=== PATIENT | male | born 1960 | race Caucasian/White ===

== ENCOUNTER 2017-04-04 15:13 | Emergency (ER) | payer BC ==
--- NOTE | 2017-04-04 16:02 | CT ---
Head CT Technique: Multiple axial sections through the brain were obtained. Intravenous contrast was not utilized. Comparison: No previous intracranial imaging is available. Findings: Ventricles along with basal cisterns and sulci over the convexities are within normal limits for the patient's age. No abnormal parenchymal densities are seen. No evidence of intracranial hemorrhage. No midline shift or mass effect is seen. Bone window settings were reviewed which shows the visualized sinuses to appear clear. No acute calvarial abnormality is seen. Impression: 1. No acute intracranial abnormality is identified on noncontrast head CT study. Diagnostic code #1
--- NOTE | 2017-04-04 17:08 | EDM.PDOC ---
ED HPI GENERAL MEDICAL PROBLEM - General Chief Complaint: Neuro Symptoms/Deficits Stated Complaint: HEADACHE/VOMITING Time Seen by Provider: 04/04/17 17:00 Source of Information: Reports: Patient, Family (spouse.) History Limitations: Reports: No Limitations - History of Present Illness INITIAL COMMENTS - FREE TEXT/NARRATIVE: 56-year-old male attends the ED with severe pain in his right occipital scalp area with associated nausea vomiting and dizziness. The history suggests that he sneezed aggressively like very hard 3 nights ago and caused sudden onset of severe pain in the back of his head with associated nausea and a feeling like he was going to pass out. Subsequently with certain movements he will feel the same way with lancinating severe pains originating occipital scalp and radiate down to his neck and up the scalp to behind his right eye. Pain the distribution of the occipitofrontal nerve. Pain is constant but worsens with certain movements it becomes lancinating sharp and stabbing enough to make him almost pass out or vomit. He does have a sense of feeling off balance but think is more being very careful with his head movement due to his instigating the pain. It is worse today as compared to yesterday etc. He does wear bilateral hearing aids. Onset: Sudden Onset Date: 04/01/17 Duration: Day(s):, Getting Worse Location: Reports: Head Quality: Reports: Ache, Burning, Sharp, Stabbing Severity: Severe (Pain is often lancinating shooting in severe times) Improves with: Reports: Rest (And not moving.) Worsens with: Reports: Movement (Movement of his head particular to the left side) Context: Reports: Other. Denies: Activity, Exercise, Lifting, Sick Contact, Trauma Associated Symptoms: Reports: Loss of Appetite, Malaise, Nausea/Vomiting, Other Treatments [employer]: Reports: Other (see below) (Almost a component of vertigo-like symptoms at times.) Headache Pain Score (Numeric/FACES): 6 - Related Data Allergies Allergy/AdvReac Type Severity Reaction Status Date / Time No Known Allergies Allergy Verified 04/04/17 15:50 Home Meds: Home Meds Diclofenac Sodium [Voltaren 1% Gel] 0 mg PO ASDIRECTED 10/22/16 [History] Hydrochlorothiazide 12.5 mg PO DAILY 10/22/16 [History] Ibuprofen [Motrin] 800 mg PO ASDIRECTED 10/22/16 [History] Lisinopril 10 mg PO DAILY 10/22/16 [History] Meloxicam 15 mg PO 12 #12 tablet 04/04/17 [Rx] predniSONE [Deltasone] 20 mg PO ASDIRECTED #15 tablet 04/04/17 [Rx] Past Medical History Cardiovascular History: Reports: Hypertension - Past Surgical History Musculoskeletal Surgical History: Reports: Other (See Below) Social & Family History - Family History Family Medical History: Noncontributory - Tobacco Use Smoking Status *Q: Never Smoker Second Hand Smoke Exposure: Yes - Caffeine Use Caffeine Use: Reports: Coffee, Tea - Recreational Drug Use Recreational Drug Use: No - Living Situation & Occupation Living situation: Reports: , with Spouse, with Family Occupation: Employed ED ROS GENERAL - Review of Systems Review Of Systems: See Below Constitutional: Denies: Fever, Chills, Malaise, Weakness, Fatigue, Decreased Appetite, Weight Loss HEENT: Reports: Hearing Loss. Denies: Eye Discharge, Eye Pain, Glasses, Nose Pain, Rhinitis, Sinus Problem, Throat Pain, Throat Swelling Respiratory: Reports: No Symptoms Cardiovascular: Reports: No Symptoms Endocrine: Reports: No Symptoms GI/Abdominal: Reports: Nausea (Intermittent nausea and vomiting precipitated by the severity of the pain in his occipital right scalp.) : Reports: No Symptoms Musculoskeletal: Reports: Other (Neck and occipital scalp pain.) Skin: Reports: No Symptoms Neurological: Reports: No Symptoms, Dizziness (Time seen complains of dizziness almost vertically vertiginous-like). Denies: Confusion, Headache, Numbness ( activity.), Seizure, Syncope, Tingling, Tremors, Trouble Speaking, Difficulty Walking, Weakness, Change in Speech, Gait Disturbance, Other Psychiatric: Reports: No Symptoms Hematologic/Lymphatic: Reports: No Symptoms Immunologic: Reports: No Symptoms ED EXAM, DIZZINESS - Physical Exam Exam: See Below Exam Limited By: No Limitations General Appearance: Alert, WD/WN, No Apparent Distress, Anxious. No: Lethargic , Obtunded, Mild Distress, Moderate Distress, Severe Distress, Obese, Thin Eye Exam: Bilateral Eye: Normal Inspection, PERRL (Interesting it bothered him on left lateral upward gaze but he was moving his head at the same time is to use rubbing his eye.) Ears: Normal External Exam, Normal TMs (Hearing aids out there is no wax occluding his ears canals. Tympanic membranes are normal) Throat/Mouth: Normal Inspection, Normal Lips, Normal Teeth, Normal Gums, Normal Oropharynx, Other Head Exam: Atraumatic (Uvula is in the midline), Other (Patient has an area of extreme tenderness on palpation of the occipital scalp base on the right side where the paraspinal muscles and sternocleidomastoid muscles insert. This caused no pain with light pressure to almost make him vomit.) Vertigo: worsens with head to L (Will be sent to the left exacerbates the pain tremendously.) Neck: Normal Inspection, Supple, Non-Tender, Full Range of Motion, Limited Range of Motion (pain worse with forward flexion of the head to chin position.) . No: Tender Midline, Thyromegaly Respiratory/Chest: No Respiratory Distress, Lungs Clear, Normal Breath Sounds, No Accessory Muscle Use Cardiovascular: Normal Peripheral Pulses, Regular Rate, Rhythm, No Edema, No Gallop, No JVD, No Murmur, No Rub GI/Abdominal: Normal Bowel Sounds, Soft, Non-Tender, No Organomegaly, No Abnormal Bruit Neurological: Alert, Normal Mood/Affect, Normal Dorsiflexion, CN II-XII Intact, Normal Plantar Flexion, Normal Gait, No Motor/Sensory Deficits, Oriented x 3, Other (Patient had no problems with finger to nose although is a bit slow at the activity. Rapid alternating movements were normal. [id number] was normal.) Back Exam: Normal Inspection, Full Range of Motion Extremities: Normal Inspection, Normal Range of Motion, Non-Tender, No Pedal Edema, Normal Capillary Refill Psychiatric: Normal Affect, Normal Mood Skin Exam: Warm, Dry, Intact, Normal Color, No Rash Course - Vital Signs Last Recorded V/S: Last Vital Signs Temp 36.2 C 04/04/17 15:15 Pulse 69 04/04/17 15:15 Resp 16 04/04/17 15:15 BP 122/77 04/04/17 15:15 Pulse Ox 98 04/04/17 15:15 - Orders/Labs/Meds Orders: Active Orders 24 hr Category Date Time Status CBC WITH MANUAL DIFF [HEME] Stat Lab 04/04/17 15:45 Results Ketorolac [Toradol] Med 04/04/17 17:15 Active 30 mg IVPUSH ONETIME Medication Orders Ketorolac Tromethamine (Toradol) 30 mg IVPUSH ONETIME TABATHA Last Admin: 04/04/17 17:16 Dose: 30 mg Labs: Laboratory Tests 04/04/17 04/04/17 Range/Units 15:45 15:45 WBC 8.35 (4.23-9.07) K/mm3 RBC 5.06 (4.63-6.08) M/mm3 Hgb 14.8 (13.7-17.5) gm/L Hct 43.5 (40.1-51.0) % MCV 86.0 (79.0-92.2) fl MCH 29.2 (25.7-32.2) pg MCHC 34.0 (32.2-35.5) g/dl RDW Std Deviation 42.8 (35.1-43.9) fL Plt Count 270 (163-337) K/mm3 MPV 10.7 (9.4-12.3) fl Sodium 136 (136-145) mEq/L Potassium 3.3 L (3.5-5.1) mEq/L Chloride 101 (98-107) mEq/L Carbon Dioxide 26 (21-32) mEq/L Anion Gap 12.3 (5-15) BUN 19 H (7-18) mg/dL Creatinine 1.2 (0.7-1.3) mg/dL Est Cr Clr Drug Dosing 73.21 mL/min Estimated GFR (MDRD) > 60 (>60) mL/min BUN/Creatinine Ratio 15.8 (14-18) Glucose 97 (74-106) mg/dL Calcium 9.0 (8.5-10.1) mg/dL Magnesium 2.2 (1.8-2.4) mg/dl Total Bilirubin 0.5 (0.2-1.0) mg/dL AST 25 (15-37) U/L ALT 35 (16-63) U/L Alkaline Phosphatase 74 (46-116) U/L C-Reactive Protein < 0.2 (<1.0) mg/dL Total Protein 7.9 (6.4-8.2) g/dl Albumin 4.4 (3.4-5.0) g/dl Globulin 3.5 gm/dL Albumin/Globulin Ratio 1.3 (1-2) Meds: Medications Generic Name Dose Route Start Last Admin Trade Name Freq PRN Reason Stop Dose Admin Ketorolac Tromethamine 30 mg 04/04/17 17:15 04/04/17 17:16 Toradol IVPUSH 30 mg ONETIME TABATHA Administration Discontinued Medications Generic Name Dose Route Start Last Admin Trade Name Nithin PRN Reason Stop Dose Admin Ondansetron HCl 4 mg 04/04/17 17:09 04/04/17 17:13 Zofran IVPUSH 04/04/17 17:10 4 mg ONETIME ONE Administration - Radiology Interpretation Free Text/Narrative:: 56-year-old male attends the ED due to severe pain in his right occipital scalp since sneezing hard 3 days ago. He never came up with the point of tenderness until we brought it up and examined him. He is expressing sharp lancinating pain when he moves in certain directions particularly looking to the left or forward flexing his neck. Anus benefits made him almost pass out and has precipitated nausea and vomiting. CT scan of his brain was done as he was called a stroke alert upon his arrival. CT of the brain is normal. Neuro exam is also compliant normal. I feel that his current pain is secondary to muscle strain at the base of the scalp. Causing a headache and sharp lancinating pain with certain movements. I'm going to have routine labs done because he is dieting plus he is drinking a lot of water and tea. Wish to make sure that he is not hyponatremic etc. - Re-Assessments/Exams Free Text/Narrative Re-Assessment/Exam: 04/04/17 18:19: Labs are essentially normal other than a mildly low potassium at 3.3. Patient does have a good appetite otherwise. I'm therefore going to have him place his Voltaren gel that he has at home on the area twice daily. Going to place him on meloxicam 15 mg once daily for [address] him on Deltasone 20 mg with breakfast and supper for 5 days then once daily in the morning for another 5 days to reduce pain and inflammation. Patient has a relative intolerance to narcotics and therefore I'm not going to give him any narcotic medication. He throughout extremely violently from Dilaudid in the past. Follow-up with his personal care provider of any further problems occur although this is likely to settle over the next 5-7 days. Departure - Departure Time of Disposition: 18:25 Disposition: Home, Self-Care 01 Condition: Fair Clinical Impression: Neuralgia involving scalp Sprain of cervical neck Qualifiers: Encounter type: initial encounter Qualified Code(s): S13.9XXA - Sprain of joints and ligaments of unspecified parts of neck, initial encounter - Discharge Information Prescriptions: Meloxicam 15 mg PO 12 #12 tablet predniSONE [Deltasone] 20 mg PO ASDIRECTED #15 tablet Instructions: Cervical Sprain, [id number] Referrals: Paris Kern DO [Primary Care Provider] - Forms: ED Department Discharge Additional Instructions: Evaluation in the emergency room today in regards to acute onset of severe pain right occipital scalp after sneezing aggressively 3 days ago. This is produced tenths pain at the base of the skull on the right side adjacent to the mastoid process which is behind her ear. 2 muscles insert in this area including many of the neck muscles. It appears that these were aggressively strain from the severity of the sneeze and jerking of the head. There is pinpoint inflammation at the base of the scalp which is causing atypical headache and inflammation of the occipital frontal nerve radiate up towards her forehead and eyes. This will heal but it'll probably take the better part of a week to 10 days. Suggest using her Voltaren gel to this area up to twice a day. Using meloxicam 15 mg tablet once orally per day for 12 days to take away pain and inflammation. Use Deltasone 20 mg twice daily breakfast and supper for 5 days then 1 tablet only in the morning for another 5 days again to relieve pain and inflammation from a different treatment plan. Heat to the area may now help after 48 hours post injury. 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 Certainly movements like looking to the left or chin on chest position will exacerbate the pain. Expect gradual improvement over the next 5-7 days. - My Orders Last 24 Hours: My Active Orders 04/04/17 15:45 CBC WITH MANUAL DIFF [HEME] Stat 04/04/17 17:15 Ketorolac [Toradol] 30 mg IVPUSH ONETIME - Assessment/Plan Last 24 Hours: My Active Orders 04/04/17 15:45 CBC WITH MANUAL DIFF [HEME] Stat 04/04/17 17:15 Ketorolac [Toradol] 30 mg IVPUSH ONETIME
[2017-04-04] MEDS ORDERED: Ondansetron 4 MG/2 ML SDV IVPUSH ONE (17:09)
[2017-04-04] MEDS ORDERED: Ketorolac 30 MG/ML SDV IVPUSH SCH (17:15)
[2017-04-04 18:45] VITALS: BP 111/67
== END 2017-04-04 18:36 | disposition home or self-care (01) ==
LOC: JD.ED 15:13
DX: S13.9XXA Sprain of joints and ligaments of unspecified parts of neck, initial encounter (principal); X58.XXXA Exposure to other specified factors, initial encounter; M79.2 Neuralgia and neuritis, unspecified; I10 Essential (primary) hypertension; Z79.899 Other long term (current) drug therapy
CPT/HCPCS: 36415; 70450; 80053; 83735; 85025; 86140; 96374; 96375; 99284; J1885; J2405